=== PATIENT | female | born 1985 | race Caucasian/White ===

== ENCOUNTER → 2016-07-05 | Emergency (ER) | payer OTHER ==
[~2016-07-05] MED LIST: ALBUTEROL17 GM INH; AMOXICILLIN500 M1 PO; BACTRIM DS TABL1 TA1 PO; BACTRIM DS TABL1 TAB PO; BENADRYL25 M3 PO; FLEXERIL10 MG PO; IBUPROFEN800 MG PO; KEFLEX PO; LORTAB 5/500 TA1 TA1 PO; MEDROL DOSEPAK4 MG; NAPROXEN PO; NO MEDICATIONS; NORCO 7.5/325 T1 TAB PO; PEN-VEE K PO; PERCOCET 5-3251 TAB PO; PHENERGAN PO; PREDNISONE5 M1 PO; PROCARDIA XL PO; TOBREX 0.3% OP3.5 GM OD; ULTRAM PO; VOLTAREN50 MG PO; VOLTAREN75 MG PO; ZANTAC150 M1; ZITHROMAX PO; [UNRECOGNIZED DRUG - OTHER]
== END | disposition home or self-care (01) ==
LOC: SED 23:47
DX: T40.1X1A Poisoning by heroin, accidental (unintentional), initial encounter (principal); F17.200 Nicotine dependence, unspecified, uncomplicated; I10 Essential (primary) hypertension; F11.10 Opioid abuse, uncomplicated; Z88.5 Allergy status to narcotic agent
CPT/HCPCS: 99282